=== PATIENT | female | born 1940 | race Caucasian/White ===

== ENCOUNTER 2017-08-30 12:27 | Observation (INO) | payer MEDICARE, BC ==
[~2017-08-30] VITALS: Ht 163.8 cm; Wt 84.4 kg
[2017-08-30] VITALS (8 sets, daily range): BP systolic 122–173; BP diastolic 58–74; PULSE 64–110; RESP 18–20; TEMP 96.9–98.9; O2SAT 93–99
[~2017-08-30 12:27] MED LIST: ACET325T11 PO; ADAL30TA10 PO; ADVAI100I PO; ALBU1AER INH; BIOTCAP PO; CALC600T34 PO; IRBE1TAB39 PO; TAB-TAB PO; VITA400C28 PO
[2017-08-30] MEDS ORDERED: SODIUM CHLORID 0.9% 500 ML INJ 500 ML IV ONE (12:45)
[2017-08-30] MEDS ORDERED: SODIUM CHLORIDE 0.9% FLUSH 10 ML FLUSH IVF PRN (12:45)
[2017-08-30] MEDS ORDERED: MORPHINE SULFATE 4 MG/ML INJ IV PUSH ONE (12:45)
[2017-08-30] MEDS ORDERED: ASPIRIN 81 MG CHEW TAB PO ONE (12:45)
[2017-08-30] MEDS ORDERED: NITROGLYCERIN 2% OINT 1 GM PACKET TOP ONE (12:45)
--- NOTE | 2017-08-30 12:46 | PD ---
HPI Chief Complaint: Chest Pain Time Seen by Provider: 12:30 Travel History International Travel<30 days: No Contact w/Intl Traveler<30days: No Traveled to known affect area: No History of Present Illness HPI The patient is a 77-year-old female who presents to the emergency department with chest pain. The patient developed chest pain earlier today that is left-sided, pressure, radiates to the back, and is sharp with inspiration. She does complain of shortness of breath without any nausea, vomiting, or diaphoresis. The patient does have a history of DVT secondary to previous surgery but is not currently anticoagulated. She denies any known history of pulmonary embolism. She does have a history of hypertension but denies any history of hyperlipidemia, diabetes, or coronary artery disease. She does have a remote history of tobacco use. The patient also states she had 3 episodes of diarrhea earlier today but denies any significant abdominal pain. The patient is followed by her primary physician, Dr. Pyle, and her oncologist, Dr. Nguyen. The patient has a remote history of breast cancer with left lumpectomy and radiation therapy, denies any chemotherapy. She is currently cancer free per her report. Symptoms are moderate. PFSH Past Medical History Narrative Medical Hypertension, COPD, breast cancer Diabetes: No Glaucoma: No Hepatitis: No Hiatal Hernia: No Hypertension: Yes Thyroid Disease: No Past Surgical History Abdominal Surgery: Yes (breast bx right,appendectomy,gallblader with exp) Eye Surgery: Yes (cataract removed from left eye) Oral Surgery: Yes (tonsillectomy) Social History Alcohol Use: Yes (daily beer occ mixed drink) Tobacco Use: No Allergies-Medications (Allergen,Severity, Reaction): Coded Allergies: Fish Containing Products (Unverified Allergy, Severe, ALL FISH AND Shell fish causes throat closes but not iodine, 11/18/16) meperidine (Unverified Allergy, Severe, severe agitation, 11/18/16) penicillin G (Unverified Allergy, Severe, swelling difficulty swallowing, 11/18/16) shellfish derived (Verified Allergy, Severe, 08/30/17) Reported Meds & Prescriptions Reported Meds & Active Scripts Active Reported Colcrys (Colchicine) 0.6 Mg Tab 0.6 Mg PO BID Synthroid (Levothyroxine Sodium) 175 Mcg Tab 175 Mcg PO DAILY Meclizine (Meclizine HCl) 25 Mg Tab 25 Mg PO DIRECTED PRN Proair Hfa 8.5 GM Inh (Albuterol Sulfate) 90 Mcg/Act Aer 2 Puff INH Q4-6H PRN 108 mcg/actuation Flonase Nasal [place] (Fluticasone Nasal [place]) 50 Mcg/Act [place] 50 Mcg EACH NARE BID Breo Ellipta Inh (Fluticasone/Vilanterol) 100-25 Mcg/Act Inh 1 Puff INH DAILY Use daily at the same time. Nifedipine ER 24 HR (Nifedipine) 30 Mg Tab 30 Mg PO DAILY Avapro (Irbesartan) 75 Mg Tab 75 Mg PO DAILY Review of Systems Except as stated in HPI: all other systems reviewed are Neg General / Constitutional: No: Fever HENT: No: Lightheadedness Cardiovascular: Positive: Chest Pain or Discomfort Respiratory: Positive: Shortness of Breath, Pleuritic Pain, No: Cough, Wheezing Gastrointestinal: Positive: Diarrhea, No: Nausea, Vomiting, Abdominal Pain Musculoskeletal: No: Edema Neurologic: No: Dizziness Physical Exam Narrative GENERAL: Awake, alert, very pleasant 77-year-old female who appears her stated age and is in no acute respiratory distress. SKIN: Focused skin assessment warm/dry. HEAD: Atraumatic. Normocephalic. EYES: The patient is wearing glasses. No injection or drainage. ENT: No nasal bleeding or discharge. Mucous membranes pink and moist. NECK: Trachea midline. No JVD. CARDIOVASCULAR: Regular, tachycardic with a heart rate of 105. No audible murmur. RESPIRATORY: No accessory muscle use. Clear to auscultation. Breath sounds equal bilaterally. No wheezing noted. GASTROINTESTINAL: Abdomen soft, non-tender, nondistended. Well-healed midline scar. No rebound tenderness. MUSCULOSKELETAL: No obvious deformities. No clubbing. No cyanosis. No edema. NEUROLOGICAL: Awake and alert. No obvious cranial nerve deficits. Motor grossly within normal limits. Normal speech. PSYCHIATRIC: Appropriate mood and affect; insight and judgment normal. Data Data Last Documented VS Vital Signs Date Time Temp Pulse Resp B/P (MAP) Pulse Ox O2 Delivery O2 Flow Rate FiO2 08/30/17 13:15 110 18 94 Nasal Cannula 2.00 08/30/17 13:06 98.9 173/74 (107) Orders Orders Electrocardiogram (08/30/17 12:39) B-Type Natriuretic Peptide (08/30/17 12:39) Ckmb (Isoenzyme) Profile (08/30/17 12:39) Complete Blood Count With Diff (08/30/17 12:39) Comprehensive Metabolic Panel (08/30/17 12:39) Magnesium (Mg) (08/30/17 12:39) Prothrombin Time / Inr (Pt) (08/30/17 12:39) Act Partial Throm Time (Ptt) (08/30/17 12:39) Troponin I (08/30/17 12:39) Lipase (08/30/17 12:39) Ecg Monitoring (08/30/17 12:39) Bilateral Bp Monitoring (08/30/17 12:39) Iv Access Insert/Monitor (08/30/17 12:39) Oximetry (08/30/17 12:39) Oxygen Administration (08/30/17 12:39) Aspirin Chew (Aspirin Chew) (08/30/17 12:45) Morphine Inj (Morphine Inj) (08/30/17 12:45) Nitroglycerin 2% Oint (Nitroglycerin 2% (08/30/17 12:45) Sodium Chloride 0.9% Flush (Ns Flush) (08/30/17 12:45) Sodium Chlorid 0.9% 500 Ml Inj (Ns 500 M (08/30/17 12:45) Ct Pulmonary Angiogram (08/30/17 12:39) Chest, Pa & Lat (08/30/17 12:39) Ondansetron Odt (Zofran Odt) (08/30/17 13:00) Iohexol 350 Inj (Omnipaque 350 Inj) (08/30/17 14:00) Admit Order (Ed Use Only) (08/30/17 14:16) Labs Laboratory Tests Test 08/30/17 12:46 White Blood Count 8.1 TH/MM3 Red Blood Count 4.08 MIL/MM3 Hemoglobin 13.2 GM/DL Hematocrit 39.7 % Mean Corpuscular Volume 97.3 FL Mean Corpuscular Hemoglobin 32.4 PG Mean Corpuscular Hemoglobin Concent 33.3 % Red Cell Distribution Width 13.2 % Platelet Count 301 TH/MM3 Mean Platelet Volume 7.9 FL Neutrophils (%) (Auto) 66.8 % Lymphocytes (%) (Auto) 24.1 % Monocytes (%) (Auto) 7.0 % Eosinophils (%) (Auto) 1.4 % Basophils (%) (Auto) 0.7 % Neutrophils # (Auto) 5.3 TH/MM3 Lymphocytes # (Auto) 2.0 TH/MM3 Monocytes # (Auto) 0.6 TH/MM3 Eosinophils # (Auto) 0.1 TH/MM3 Basophils # (Auto) 0.1 TH/MM3 CBC Comment DIFF FINAL Differential Comment Prothrombin Time 10.4 SEC Prothromb Time International Ratio 1.0 RATIO Activated Partial Thromboplast Time 25.0 SEC Blood Urea Nitrogen 15 MG/DL Creatinine 0.91 MG/DL Random Glucose 261 MG/DL Total Protein 7.2 GM/DL Albumin 3.7 GM/DL Calcium Level 8.9 MG/DL Magnesium Level 1.8 MG/DL Alkaline Phosphatase 99 U/L Aspartate Amino Transf (AST/SGOT) 19 U/L Alanine Aminotransferase (ALT/SGPT) 30 U/L Total Bilirubin 0.4 MG/DL Sodium Level 138 MEQ/L Potassium Level 3.3 MEQ/L Chloride Level 105 MEQ/L Carbon Dioxide Level 22.2 MEQ/L Anion Gap 11 MEQ/L Estimat Glomerular Filtration Rate 60 ML/MIN Total Creatine Kinase 50 U/L Troponin I LESS THAN 0.02 NG/ML B-Type Natriuretic Peptide 99 PG/ML Lipase 179 U/L MDM Medical Decision Making Medical Screen Exam Complete: Yes Emergency Medical Condition: Yes Medical Record Reviewed: Yes Interpretation(s) EKG reveals sinus tachycardia with a heart rate of 109. RSR prime in V1. Laboratory Tests Test 08/30/17 12:46 White Blood Count 8.1 TH/MM3 Red Blood Count 4.08 MIL/MM3 Hemoglobin 13.2 GM/DL Hematocrit 39.7 % Mean Corpuscular Volume 97.3 FL Mean Corpuscular Hemoglobin 32.4 PG Mean Corpuscular Hemoglobin Concent 33.3 % Red Cell Distribution Width 13.2 % Platelet Count 301 TH/MM3 Mean Platelet Volume 7.9 FL Neutrophils (%) (Auto) 66.8 % Lymphocytes (%) (Auto) 24.1 % Monocytes (%) (Auto) 7.0 % Eosinophils (%) (Auto) 1.4 % Basophils (%) (Auto) 0.7 % Neutrophils # (Auto) 5.3 TH/MM3 Lymphocytes # (Auto) 2.0 TH/MM3 Monocytes # (Auto) 0.6 TH/MM3 Eosinophils # (Auto) 0.1 TH/MM3 Basophils # (Auto) 0.1 TH/MM3 CBC Comment DIFF FINAL Differential Comment Prothrombin Time 10.4 SEC Prothromb Time International Ratio 1.0 RATIO Activated Partial Thromboplast Time 25.0 SEC Blood Urea Nitrogen 15 MG/DL Creatinine 0.91 MG/DL Random Glucose 261 MG/DL Total Protein 7.2 GM/DL Albumin 3.7 GM/DL Calcium Level 8.9 MG/DL Magnesium Level 1.8 MG/DL Alkaline Phosphatase 99 U/L Aspartate Amino Transf (AST/SGOT) 19 U/L Alanine Aminotransferase (ALT/SGPT) 30 U/L Total Bilirubin 0.4 MG/DL Sodium Level 138 MEQ/L Potassium Level 3.3 MEQ/L Chloride Level 105 MEQ/L Carbon Dioxide Level 22.2 MEQ/L Anion Gap 11 MEQ/L Estimat Glomerular Filtration Rate 60 ML/MIN Total Creatine Kinase 50 U/L Troponin I LESS THAN 0.02 NG/ML B-Type Natriuretic Peptide 99 PG/ML Lipase 179 U/L Last Impressions Chest X-Ray 08/30/17 1239 Signed Impressions: CONCLUSION: Negative examination. CT Angiography 08/30/17 1239 Signed Impressions: CONCLUSION: 1. No acute abnormality. In particular, no pulmonary emboli. 2. Cylindrical bronchiectasis. Differential Diagnosis Differential diagnosis includes pulmonary embolism, pneumonia, pneumothorax, pleural effusion, STEMI, acute coronary syndrome, GERD, esophageal spasm, dissection. Narrative Course IV was established, labs are drawn and sent, and the patient was placed on cardiac telemetry monitoring and continuous pulse oximetry monitoring. EKG was ordered and interpreted. The patient was administered aspirin, morphine, Zofran , and Nitropaste to the chest wall. Patient was administered 500 cc normal saline. Chest x-ray was obtained. CT pulmonary angiogram was ordered as patient is tachycardic, short of breath, pleuritic pain, with history of prior DVT. The patient's initial troponin is negative. BNP is unremarkable. Chest x -ray is negative. The patient CT pulmonary angiogram reveals cylindrical bronchiectasis, however, no pulmonary embolism. The patient's oxygen level was in the 90s on O2 via nasal cannula 2 L. Heart rate did come down into the 80s. Shortness of breath resolved, however, she continued to have some anterior left-sided chest pain and discomfort. Therefore, patient will be a 23 hour observation to the chest pain center for serial cardiac enzymes and possible stress test. The patient is comfortable with this plan of care and disposition. The on-call [facility] was paged for 23 hour observation to the chest pain center. Physician Communication Physician Communication [facility] were paged for 23 hour observation to the chest pain center. I discussed the patient with Dr. Ramirez who agrees with 23 hour observation. Diagnosis Primary Impression: Chest pain Qualified Codes: R07.9 - Chest pain, unspecified Admitting Information Admitting Physician Requests: Observation Condition: Stable Omar Dominguez MD August 30, 2017 12:46
[2017-08-30] MEDS ORDERED: ONDANSETRON ODT 4 MG TAB PO ONE (13:00)
[2017-08-30 13:13] LABS: CHLORIDE 105 MEQ/L (98-107); SODIUM (NA) 138 MEQ/L (136-145)
[2017-08-30] MEDS ORDERED: NIFE30TA61 PO (13:14)
[2017-08-30] MEDS ORDERED: FLUT1INH INH (13:14)
[2017-08-30] MEDS ORDERED: ALBUAER3 INH (13:14)
[2017-08-30] MEDS ORDERED: IRBE75TA24 PO (13:14)
[2017-08-30] MEDS ORDERED: COLC0.6T PO (13:14)
[2017-08-30] MEDS ORDERED: MECL-62 PO (13:14)
[2017-08-30] MEDS ORDERED: SYNT175T PO (13:14)
[2017-08-30] MEDS ORDERED: FLUT1SPR5 EACH NARE (13:14)
[2017-08-30 13:18] LABS: ALBUMIN 3.7 GM/DL (3.4-5.0); AUTOMATED NEUTROPHIL # 5.3 TH/MM3 (1.8-7.7); BASOPHIL # 0.1 TH/MM3 (0-0.2); BASOPHIL % 0.7 % (0.0-2.0); BICARBONATE 22.2 MEQ/L (21.0-32.0); CALCIUM 8.9 MG/DL (8.5-10.1); EOSINOPHIL # 0.1 TH/MM3 (0-0.4); EOSINOPHIL % 1.4 % (0.0-4.0); HEMATOCRIT 39.7 % (35.0-46.0); HEMOGLOBIN 13.2 GM/DL (11.6-15.3); LYMPH % 24.1 % (9.0-44.0); MEAN CELL VOLUME 97.3 FL (80.0-100.0); MEAN CORPUSCULAR HEMOGLOBIN 32.4 PG (27.0-34.0); MEAN CORPUSCULAR HGB CONC 33.3 % (32.0-36.0); MEAN PLATELET VOLUME 7.9 FL (7.0-11.0); MONOCYTE # 0.6 TH/MM3 (0-0.9); NEUT % 66.8 % (16.0-70.0); PLATELET COUNT 301 TH/MM3 (150-450); RED BLOOD COUNT 4.08 MIL/MM3 (4.00-5.30); RED CELL DISTRIBUTION WIDTH 13.2 % (11.6-17.2); WHITE BLOOD COUNT 8.1 TH/MM3 (4.0-11.0)
[2017-08-30 13:19] LABS: BLOOD UREA NITROGEN 15 MG/DL (7-18); GLUCOSE,RANDOM 261 MG/DL (74-106); MAGNESIUM 1.8 MG/DL (1.5-2.5)
[2017-08-30 13:21] LABS: ALT (GPT) 30 U/L (10-53); AST (GOT) 19 U/L (15-37); CREATININE 0.91 MG/DL (0.50-1.00); GLOMERULAR FILTRATION RATE 60 ML/MIN (>89)
[2017-08-30 13:23] LABS: TOTAL BILIRUBIN ADULT 0.4 MG/DL (0.2-1.0); TOTAL PROTEIN 7.2 GM/DL (6.4-8.2)
[2017-08-30 13:24] LABS: ALKALINE PHOSPHATASE 99 U/L (45-117)
[2017-08-30 13:27] LABS: TROPONIN I LESS THAN 0.02 NG/ML (0.02-0.05)
[2017-08-30 13:39] LABS: PROTHROMBIN TIME - PATIENT 10.4 SEC (9.8-11.6)
--- NOTE | 2017-08-30 13:42 | RADRPT ---
EXAM DATE: 08/30/2017 1:31 PM EDT AGE/SEX: 77 years / Female INDICATIONS: Chest pain, short of breath CLINICAL DATA: This is the patient's initial encounter. Patient reports that signs and symptoms have been present for 1 day and indicates a pain score of 10/10. MEDICAL/SURGICAL HISTORY: Chronic obstructive pulmonary disease. Hypertension. None. COMPARISON: . FINDINGS: PA and lateral views of the chest demonstrate the lungs to be symmetrically aerated without evidence of mass, infiltrate or effusion. The cardiomediastinal contours are unremarkable. Osseous structures are intact. CONCLUSION: Negative examination. Electronically signed by: Isaiah Arias MD 08/30/2017 1:41 PM EDT
[2017-08-30] MEDS ORDERED: IOHEXOL 350 MG/ML 10 ML VIAL (for RAD DIAG) IVCONTRAST ONE (14:00)
--- NOTE | 2017-08-30 14:08 | RADRPT ---
EXAM DATE: 08/30/2017 1:59 PM EDT AGE/SEX: 77 years / Female INDICATIONS: Left sided chest pain and short of breath. CLINICAL DATA: This is the patient's initial encounter. Patient reports that signs and symptoms have been present for 3 days and indicates a pain score of 4/10. MEDICAL/SURGICAL HISTORY: Carcinoma, breast. Appendectomy. Cholecystectomy. RADIATION DOSE: 18.15 CTDI (mGy) COMPARISON: None. TECHNIQUE: Volumetric scanning was performed using a multi-row detector CT scanner during bolus infu crista of 65 ml Omnipaque 350 (iohexol) nonionic water-soluble contrast as a single exam dose. The andriy a was post processed with a variety of visualization algorithms including full volume maximum intensi ty projection and sliding thin slab reformation. Using automated exposure control and adjustment of the mA and/or kV according to patient size, radiation dose was kept as low as reasonably achievable t o obtain optimal diagnostic quality images. FINDINGS: Pulmonary Arteries: No filling defects are seen in the pulmonary arteries out to the subsegmental ve ssels. The left and right pulmonary arteries are normal in diameter. Lung: No infiltrates seen. Mild cylindrical bronchiectasis bilaterally but most pronounced within th e lower lobes. Effusion: None. Mediastinum: No evidence of mediastinal or hilar adenopathy. Other: The axilla is unremarkable. Partial visualization of a cyst involving the upper pole the left kidney. Tiny hepatic cyst within the dome. CONCLUSION: 1. No acute abnormality. In particular, no pulmonary emboli. 2. Cylindrical bronchiectasis. Electronically signed by: Isaiah Arias MD 08/30/2017 2:06 PM EDT
--- NOTE | 2017-08-30 14:13 | EKG ---
Date Performed: 08/30/2017 Time Performed: 12:31:18 PTAGE: 77 years EKG: SINUS TACHYCARDIA POSSIBLE RIGHT VENTRICULAR CONDUCTION DELAY ABNORMAL RHYTHM ECG PREVIOUS TRACING : 02/14/2008 14.46 No significant change from previous tracing noted. DOCTOR: Juan Carlos Arroyo Interpretating Date/Time 08/30/2017 14:11:35
[2017-08-30] MEDS ORDERED: IOHEXOL 350 MG/ML 50 ML BTL (for Cath Lab) OTHER ONE (14:21)
[2017-08-30] MEDS ORDERED: NITROGLYCERIN 0.4 MG SL 25 TABS/BTL SL PRN (14:30)
[2017-08-30] MEDS ORDERED: ONDANSETRON HCL 4 MG/2 ML VIAL IV PUSH PRN (14:30)
[2017-08-30] MEDS ORDERED: MORPHINE SULFATE 4 MG/ML INJ IV PUSH PRN (14:30)
[2017-08-30] MEDS ORDERED: SODIUM CHLORIDE 0.9% FLUSH 10 ML FLUSH IV FLUSH PRN (14:30)
--- NOTE | 2017-08-30 16:13 | HHI.HP ---
[facility] Physician Coco Pyle MD Admission Diagnosis Chest pain rule out ACS Diagnoses: (1) Hypertension (2) History of left breast cancer (3) Chest pain Chief Complaint: Chest pain Travel History International Travel<30 Days: No Contact w/Intl Traveler <30 Da: No Traveled to Known Affected Are: No History of Present Illness 77-year-old female with a past medical history of hypertension and remote history of breast cancer treated with chemo and radiation, for which patient has been free of disease over the past 10 years presented to the ED for evaluation of an acute onset of left-sided chest pain since this morning described as sharp with radiation to left upper extremity without any associated diaphoresis or dizziness however radiate over 10 in intensity at the time, and not relieved with Tylenol. Patient states she has had in the past chest pain episodes however this current one is quite different in intensity and character from the previous ones. Afterward patient states she has had 3 episode of diarrhea. During my exam, patient was still complaining of chest pain however stated it was now dull and radiates 6 in intensity. She denies any GI bleed Review of Systems Except as stated in HPI: all other systems reviewed are Neg Past Family Social History Past Medical History Hypertension, COPD, breast cancer Hypertension: Yes Gout disease Past Surgical History Abdominal Surgery: Yes (breast bx right,appendectomy,gallblader with exp) Eye Surgery: Yes (cataract removed from left eye) Oral Surgery: Yes (tonsillectomy) Thyroidectomy Reported Medications Colcrys (Colchicine) 0.6 Mg Tab 0.6 Mg PO BID Synthroid (Levothyroxine Sodium) 175 Mcg Tab 175 Mcg PO DAILY Meclizine (Meclizine HCl) 25 Mg Tab 25 Mg PO DIRECTED PRN Proair Hfa 8.5 GM Inh (Albuterol Sulfate) 90 Mcg/Act Aer 2 Puff INH Q4-6H PRN 108 mcg/actuation Flonase Nasal [place] (Fluticasone Nasal [place]) 50 Mcg/Act [place] 50 Mcg EACH NARE BID Breo Ellipta Inh (Fluticasone/Vilanterol) 100-25 Mcg/Act Inh 1 Puff INH DAILY Use daily at the same time. Nifedipine ER 24 HR (Nifedipine) 30 Mg Tab 30 Mg PO DAILY Avapro (Irbesartan) 75 Mg Tab 75 Mg PO DAILY Allergies: Coded Allergies: Fish Containing Products (Unverified Allergy, Severe, ALL FISH AND Shell fish causes throat closes but not iodine, 11/18/16) meperidine (Unverified Allergy, Severe, severe agitation, 11/18/16) penicillin G (Unverified Allergy, Severe, swelling difficulty swallowing, 11/18/16) shellfish derived (Verified Allergy, Severe, 08/30/17) Family History Colon cancer, leukemia, bone cancer, hypertension Social History Alcohol Use: Yes (daily beer occ mixed drink) Tobacco Use: No Physical Exam Vital Signs Vital Signs Date Time Temp Pulse Resp B/P (MAP) Pulse Ox O2 Delivery O2 Flow Rate FiO2 08/30/17 15:41 64 08/30/17 15:23 98.5 65 18 122/58 (79) 95 08/30/17 15:05 99 Nasal Cannula 2.00 08/30/17 13:15 110 18 94 Nasal Cannula 2.00 08/30/17 13:15 94 Nasal Cannula 2.00 08/30/17 13:15 94 Nasal Cannula 2.00 08/30/17 13:06 98.9 110 18 173/74 (107) 94 Physical Exam GENERAL: This is a well-nourished, well-developed patient, in no apparent distress. SKIN: No rashes, ecchymoses or lesions. Cool and dry. HEAD: Atraumatic. Normocephalic. No temporal or scalp tenderness. EYES: Pupils equal round and reactive. Extraocular motions intact. No scleral icterus. No injection or drainage. ENT: Nose without bleeding, purulent drainage or septal hematoma. Throat without erythema, tonsillar hypertrophy or exudate. Uvula midline. Airway patent. NECK: Trachea midline. No JVD or lymphadenopathy. Supple, nontender, no meningeal signs. CARDIOVASCULAR: Regular rate and rhythm without murmurs, gallops, or rubs. RESPIRATORY: Clear to auscultation. Breath sounds equal bilaterally. No wheezes , rales, or rhonchi. GASTROINTESTINAL: Abdomen soft, non-tender, nondistended. No hepato-splenomegaly , or palpable masses. No guarding. MUSCULOSKELETAL: Extremities without clubbing, cyanosis, or edema. No joint tenderness, effusion, or edema noted. No calf tenderness. Negative Homans sign bilaterally. NEUROLOGICAL: Awake and alert. Cranial nerves II through XII intact. Motor and sensory grossly within normal limits. Five out of 5 muscle strength in all muscle groups. Normal speech. Laboratory Laboratory Tests Test 08/30/17 12:46 White Blood Count 8.1 Red Blood Count 4.08 Hemoglobin 13.2 Hematocrit 39.7 Mean Corpuscular Volume 97.3 Mean Corpuscular Hemoglobin 32.4 Mean Corpuscular Hemoglobin Concent 33.3 Red Cell Distribution Width 13.2 Platelet Count 301 Mean Platelet Volume 7.9 Neutrophils (%) (Auto) 66.8 Lymphocytes (%) (Auto) 24.1 Monocytes (%) (Auto) 7.0 Eosinophils (%) (Auto) 1.4 Basophils (%) (Auto) 0.7 Neutrophils # (Auto) 5.3 Lymphocytes # (Auto) 2.0 Monocytes # (Auto) 0.6 Eosinophils # (Auto) 0.1 Basophils # (Auto) 0.1 CBC Comment DIFF FINAL Differential Comment Prothrombin Time 10.4 Prothromb Time International Ratio 1.0 Activated Partial Thromboplast Time 25.0 Blood Urea Nitrogen 15 Creatinine 0.91 Random Glucose 261 Total Protein 7.2 Albumin 3.7 Calcium Level 8.9 Magnesium Level 1.8 Alkaline Phosphatase 99 Aspartate Amino Transf (AST/SGOT) 19 Alanine Aminotransferase (ALT/SGPT) 30 Total Bilirubin 0.4 Sodium Level 138 Potassium Level 3.3 Chloride Level 105 Carbon Dioxide Level 22.2 Anion Gap 11 Estimat Glomerular Filtration Rate 60 Total Creatine Kinase 50 Troponin I LESS THAN 0.02 B-Type Natriuretic Peptide 99 Lipase 179 Result Diagram: 08/30/17 1246 08/30/17 1246 Imaging Last Impressions Chest X-Ray 08/30/17 123 Signed Impressions: CONCLUSION: Negative examination. CT Angiography 08/30/17 123 Signed Impressions: CONCLUSION: 1. No acute abnormality. In particular, no pulmonary emboli. 2. Cylindrical bronchiectasis. Septic Shock Reassessment Septic shock perfusion: reassessment completed Caprini VTE Risk Assessment Caprini VTE Risk Assessment: Mod/High Risk (score >= 2) Caprini Risk Assessment Model Point Value = 1 Point Value = 2 Point Value = 3 Point Value = 5 Age 41-60 Minor surgery BMI > 25 kg/m2 Swollen legs Varicose veins or History of unexplained or recurrent spontaneous Oral contraceptives or hormone replacement Sepsis (< 1 month) Serious lung disease, including pneumonia (< 1 month) Abnormal pulmonary function Acute myocardial infarction Congestive heart failure (< 1 month) History of inflammatory bowel disease Medical patient at bed rest Age 61-74 Arthroscopic surgery Major open surgery (> 45 min) Laparoscopic surgery (> 45 min) Malignancy Confined to bed (> 72 hours) Immobilizing plaster cast Central venous access Age >= 75 History of VTE Family history of VTE Factor V Leiden Prothrombin [id number] Lupus anticoagulant Anticardiolipin antibodies Elevated serum homocysteine Heparin-induced thrombocytopenia Other congenital or acquired thrombophilia Stroke (< 1 month) Elective arthroplasty Hip, pelvis, or leg fracture Acute spinal cord injury (< 1 month) Prophylaxis Regimen Total Risk Factor Score Risk Level Prophylaxis Regimen 0-1 Low Early ambulation 2 Moderate Order ONE of the following: *Sequential Compression Device (SCD) *Heparin 5000 units SQ BID 3-4 Higher Order ONE of the following medications: *Heparin 5000 units SQ TID *Enoxaparin/Lovenox 40 mg SQ daily (WT < 150 kg, CrCl > 30 mL/min) *Enoxaparin/Lovenox 30 mg SQ daily (WT < 150 kg, CrCl > 10-29 mL/min) *Enoxaparin/Lovenox 30 mg SQ BID (WT < 150 kg, CrCl > 30 mL/min) AND/OR *Sequential Compression Device (SCD) 5 or more Highest Order ONE of the following medications: *Heparin 5000 units SQ TID (Preferred with Epidurals) *Enoxaparin/Lovenox 40 mg SQ daily (WT < 150 kg, CrCl > 30 mL/min) *Enoxaparin/Lovenox 30 mg SQ daily (WT < 150 kg, CrCl > 10-29 mL/min) *Enoxaparin/Lovenox 30 mg SQ BID (WT < 150 kg, CrCl > 30 mL/min) AND *Sequential Compression Device (SCD) Assessment and Plan Problem List: (1) Chest pain ICD Code: R07.9 - Chest pain, unspecified Status: Acute (2) Hypertension ICD Code: I10 - Essential (primary) hypertension (3) History of left breast cancer ICD Code: Z85.3 - Personal history of malignant neoplasm of breast Assessment and Plan 77-year-old female with Atypical chest pain Chest x-ray noted and reviewed by me without any cardio pulmonary disease CTA noted and reviewed by me and negative for PE Although patient has remote history of radiation therapy which may be contributing to her current symptoms, we will rule out ACS per protocol with serial cardiac enzyme and EKG Schedule nuclear stress test in a.m. Treat with aspirin/nitroglycerin/statin Check lipid profile, magnesium Hypertension, hypothyroidism Resume outpatient medications Elevated blood glucose No known history of diabetes type 2, check hemoglobin A1c and treat accordingly History of left breast cancer Outpatient follow-up with oncology Hypokalemia Give potassium supplement 60 mEq 1 now and monitor electrolyte Code Status Full code Discussed Condition With Patient, ED physician Problem Qualifiers (1) Chest pain: Qualified Codes: R07.9 - Chest pain, unspecified Sergio Ramirez MD August 30, 2017 16:13
[2017-08-30 16:48] LABS: TROPONIN I LESS THAN 0.02 NG/ML (0.02-0.05)
[2017-08-30] MEDS ORDERED: POTASSIUM CHLORIDE 10 MEQ CONTROLLED RELEASE TAB PO ONE (18:00)
[2017-08-30 19:41] LABS: MAGNESIUM 1.9 MG/DL (1.5-2.5)
[2017-08-30 19:50] LABS: TROPONIN I LESS THAN 0.02 NG/ML (0.02-0.05)
[2017-08-30] MEDS: FAMOTIDINE 20 MG TAB PO SCH (21:34)
[2017-08-30] MEDS: SODIUM CHLORIDE 0.9% FLUSH 10 ML FLUSH IV FLUSH SCH (21:34)
[2017-08-31] VITALS (9 sets, daily range): BP systolic 111–139; BP diastolic 54–67; PULSE 58–72; RESP 18–20; TEMP 96–98.2; O2SAT 89–95
[2017-08-31] MEDS: LEVOTHYROXINE SODIUM 75 MCG TAB PO SCH (06:06)
[2017-08-31] MEDS: LEVOTHYROXINE SODIUM 100 MCG TAB PO SCH (06:06)
[2017-08-31 07:26] LABS: CHLORIDE 110 MEQ/L (98-107); SODIUM (NA) 144 MEQ/L (136-145)
[2017-08-31 07:32] LABS: ALBUMIN 3.3 GM/DL (3.4-5.0)
[2017-08-31 07:42] LABS: ALKALINE PHOSPHATASE 83 U/L (45-117); ALT (GPT) 27 U/L (10-53); AST (GOT) 19 U/L (15-37); BICARBONATE 25.8 MEQ/L (21.0-32.0); BLOOD UREA NITROGEN 8 MG/DL (7-18); CREATININE 0.69 MG/DL (0.50-1.00); GLOMERULAR FILTRATION RATE 83 ML/MIN (>89); GLUCOSE,RANDOM 84 MG/DL (74-106); TOTAL BILIRUBIN ADULT 0.3 MG/DL (0.2-1.0); TOTAL PROTEIN 6.6 GM/DL (6.4-8.2)
[2017-08-31] MEDS: FAMOTIDINE 20 MG TAB PO SCH ×2 (07:52→22:48)
[2017-08-31] MEDS: NIFEdipine 30 MG SUSTAINED RELEASE TAB PO SCH (07:52)
[2017-08-31] MEDS: ASPIRIN 325 MG TAB PO SCH (07:53)
[2017-08-31] MEDS: LOSARTAN 25 MG TAB PO SCH (07:53)
[2017-08-31] MEDS: SODIUM CHLORIDE 0.9% FLUSH 10 ML FLUSH IV FLUSH SCH ×2 (07:55→22:48)
--- NOTE | 2017-08-31 08:11 | EKG ---
Date Performed: 08/30/2017 Time Performed: 19:10:37 PTAGE: 77 years EKG: Sinus rhythm WITH FIRST DEGREE AV BLOCK ABNORMAL ECG PREVIOUS TRACING : 08/30/2017 16.09 No significant change from previous tracing noted. DOCTOR: Juan Carlos Arroyo Interpretating Date/Time 08/31/2017 08:09:19
--- NOTE | 2017-08-31 08:14 | EKG ---
Date Performed: 08/30/2017 Time Performed: 16:09:14 PTAGE: 77 years EKG: Sinus rhythm WITH FIRST DEGREE AV BLOCK ABNORMAL ECG PREVIOUS TRACING : 08/30/2017 12.31 Compared to previous tracing, heart rate has decreased. DOCTOR: Juan Carlos Arroyo Interpretating Date/Time 08/31/2017 08:13:51
[2017-08-31] MEDS: FLUTICASONE 100 MCG/VILANTEROL 25 MCG INHALER INH SCH (08:30)
--- NOTE | 2017-08-31 10:17 | HHI.PR ---
Subjective Remarks Follow-up atypical chest pain August 31, 2017-patient seen and examined, still complaining of chest pain however not too intense as of yesterday. Denies any dizziness or shortness of breath. Currently n.p.o. pending nuclear stress test Objective Vitals Vital Signs Date Time Temp Pulse Resp B/P (MAP) Pulse Ox O2 Delivery O2 Flow Rate FiO2 08/31/17 08:30 96.5 59 18 122/58 (79) 92 08/31/17 08:21 91 21 08/31/17 08:20 67 08/31/17 04:10 96.1 71 20 119/67 (84) 94 08/31/17 00:11 96.0 58 20 121/58 (79) 95 08/30/17 20:35 97 Nasal Cannula 1.00 08/30/17 20:30 65 08/30/17 20:25 96.9 64 20 122/58 (79) 93 08/30/17 16:37 18 08/30/17 15:41 64 08/30/17 15:23 98.5 65 18 122/58 (79) 95 08/30/17 15:05 99 Nasal Cannula 2.00 08/30/17 13:15 110 18 94 Nasal Cannula 2.00 08/30/17 13:15 94 Nasal Cannula 2.00 08/30/17 13:15 94 Nasal Cannula 2.00 08/30/17 13:06 98.9 110 18 173/74 (107) 94 I/O 08/30/17 08/30/17 08/30/17 08/31/17 08/31/17 08/31/17 07:00 15:00 23:00 07:00 15:00 23:00 Intake Total 500 ml 1080 ml Balance 500 ml 1080 ml Intake Oral 1080 ml IV Total 500 ml # Voids 2 2 # Bowel Movements 0 Result Diagram: 08/30/17 1246 08/31/17 0556 Imaging Last Impressions Chest X-Ray 08/30/17 1239 Signed Impressions: CONCLUSION: Negative examination. CT Angiography 08/30/17 1239 Signed Impressions: CONCLUSION: 1. No acute abnormality. In particular, no pulmonary emboli. 2. Cylindrical bronchiectasis. Objective Remarks GENERAL: NAD SKIN: Warm and dry. HEAD: Normocephalic. EYES: No scleral icterus. No injection or drainage. NECK: Supple, trachea midline. No JVD or lymphadenopathy. CARDIOVASCULAR: Regular rate and rhythm without murmurs, gallops, or rubs. RESPIRATORY: Breath sounds equal bilaterally. No accessory muscle use. GASTROINTESTINAL: Abdomen soft, non-tender, nondistended. MUSCULOSKELETAL: No cyanosis, or edema. BACK: Nontender without obvious deformity. No CVA tenderness. A/P Problem List: (1) Chest pain ICD Code: R07.9 - Chest pain, unspecified Status: Acute (2) Hypertension ICD Code: I10 - Essential (primary) hypertension (3) History of left breast cancer ICD Code: Z85.3 - Personal history of malignant neoplasm of breast Assessment and Plan 77-year-old female with Atypical chest pain Chest x-ray noted and reviewed by me without any cardio pulmonary disease CTA noted and reviewed by me and negative for PE Although patient has remote history of radiation therapy which may be contributing to her current symptoms, we will rule out ACS per protocol with serial cardiac enzyme and EKG Schedule nuclear stress test this a.m. Treat with aspirin/nitroglycerin/statin Check lipid profile, magnesium Hypertension, hypothyroidism Continue outpatient medications Elevated blood glucose No known history of diabetes type 2, hemoglobin A1c pending and treat accordingly History of left breast cancer Outpatient follow-up with oncology Hypokalemia Resolved post treatment with potassium supplement 60 mEq 1 Problem Qualifiers (1) Chest pain: Qualified Codes: R07.9 - Chest pain, unspecified Sergio Ramirez MD August 31, 2017 10:17
[2017-08-31] MEDS ORDERED: REGADENOSON INJ 0.4 MG/5 ML SYR IV ONE (10:49)
--- NOTE | 2017-08-31 11:53 | RADRPT ---
EXAM DATE: 08/31/2017 11:41 AM EDT AGE/SEX: 77 years / Female INDICATIONS:Angina. . Left chest pain radiating to the back with dyspnea. CLINICAL DATA: This is the patient's initial encounter. Patient reports that signs and symptoms have been present for 1 day and indicates a pain score of 4/10. MEDICAL/SURGICAL HISTORY: Chronic obstructive pulmonary disease. Hypertension. Carcinoma, lakia ast. Tonsillectomy. Appendectomy. COMPARISON: No prior [place] exams available for comparison. No external comparison. DOSE: 26.2 mCi Tc 99m Myoview at stress 8.7 mCi [id number] at rest 0.4 mg Lexiscan STRESS SYMPTOMS: Chest pressure. EJECTION FRACTION: 62 % TECHNIQUE: The patient underwent pharmacologic stress with infusion of prescribed dose. Continuous ECG tracing was monitored during stress. Gated SPECT imaging was performed after stress and conventi onal SPECT imaging was performed at rest. The examination was performed on a SPECT/CT scanner, both attenuation and non-corrected datasets were reviewed. FINDINGS: Distribution: The maximum perfused segment at stress is in the wall. Perfusion Study: Small area of mild reversibility anterior wall mid myocardium.. Gated Study: There are intact wall motion and wall thickening without hypokinetic or dyskinetic segm ents. The ejection fraction is calculated at 62%. RISK CATEGORY: Intermediate (1-3 % Annual Mortality Rate) CONCLUSION: 1. Small area of mild reversibility anterior wall suggesting ischemia. 2. Normal ejection fraction. Electronically signed by: Sergio Delong MD 08/31/2017 11:52 AM EDT
[2017-08-31 12:11] LABS: CHOLESTEROL 156 MG/DL (120-200); TRIGLYCERIDES 105 MG/DL (42-150)
[2017-08-31 12:13] LABS: CHOLESTEROL/ HDL RATIO 2.43 RATIO; HDL CHOLESTEROL 64.1 MG/DL (40.0-60.0); LDL CHOLESTEROL 71 MG/DL (0-99)
[2017-08-31] MEDS ORDERED: HEPARIN SODIUM - IV 10,000 UNITS/10 ML VIAL IV PUSH ONE (12:30)
[2017-08-31] MEDS: NITROGLYCERIN 2% OINT 1 GM PACKET TOPICAL SCH ×2 (12:47→18:25)
[2017-08-31 13:07] LABS: HEMATOCRIT 39.7 % (35.0-46.0); HEMOGLOBIN 13.5 GM/DL (11.6-15.3); MEAN CELL VOLUME 95.9 FL (80.0-100.0); MEAN CORPUSCULAR HEMOGLOBIN 32.6 PG (27.0-34.0); MEAN PLATELET VOLUME 7.7 FL (7.0-11.0); PLATELET COUNT 267 TH/MM3 (150-450); RED BLOOD COUNT 4.14 MIL/MM3 (4.00-5.30); RED CELL DISTRIBUTION WIDTH 13.3 % (11.6-17.2); WHITE BLOOD COUNT 8.2 TH/MM3 (4.0-11.0)
[2017-08-31 13:43] LABS: INTERNATIONAL NORMALIZED RATIO 1.1 RATIO; PROTHROMBIN TIME - PATIENT 11.1 SEC (9.8-11.6)
[2017-08-31] MEDS: HEPARIN-D5W 25,000 U/250 ML 250 ML IV PRN ×2 (14:11→20:31)
--- NOTE | 2017-08-31 14:53 | TR ---
Date Performed: 08/31/2017 Time Performed: 11:00:54 DOCTOR: Mihai Garza DRUG LIST: CLINICAL HISTORY: ANGINA REASON FOR TEST: Angina REASON FOR ENDING: OBSERVATION: CONCLUSION: Lexiscan stress test was performed under standard four minute protocol. Radionuclide was injected one minute prior to ending the test. No electrocardiographic abormalities were present to suggest ischemia. Nuclear imaging and interpretation are pending. COMMENTS:
[2017-08-31 16:15] LABS: HEMOGLOBIN A1C 5.6 % (4.3-6.0)
[2017-08-31 17:19] LABS: TROPONIN I LESS THAN 0.02 NG/ML (0.02-0.05)
[2017-08-31] MEDS: ACETAMINOPHEN 500 MG CPLT PO PRN (18:24)
[2017-08-31] MEDS ORDERED: HEPARIN SODIUM - IV 10,000 UNITS/10 ML VIAL IV PUSH PRN ×2 (18:30)
[2017-08-31] MEDS: methylPREDNISolone SOD SUCC 125 MG/2 ML VIAL IV PUSH SCH (22:48)
[2017-08-31 23:13] LABS: TROPONIN I LESS THAN 0.02 NG/ML (0.02-0.05)
--- NOTE | 2017-08-31 23:59 | MB ---
cc: Frank Chatman MD DATE: 08/31/2017 HISTORY OF PRESENT ILLNESS: is a very pleasant 77-year-old lady with history of breast cancer, which is reportedly in remission per ____. She presented to the emergency room with severe chest pain described as sharp, associated with dyspnea and it radiates to the left upper extremity. Otherwise, denies any fevers, chills, cough, GI, , bleeding, pain, orthopnea, syncope or dizziness. PAST MEDICAL AND SURGICAL HISTORY: Includes a history of DVT, hypertension. As per history of present illness. She is status post left lumpectomy and radiation therapy. Denies having chemotherapy. Also includes COPD, appendectomy, cholecystectomy, cataract removal, tonsillectomy. SOCIAL HISTORY: She drinks alcohol daily. Denies tobacco use. ALLERGIES: FISH-CONTAINING PRODUCTS, MEPERIDINE, PENICILLIN, SHELLFISH. MEDICATIONS PRIOR TO ADMISSION: Colchicine, Synthroid, meclizine, ProAir, Flonase, Breo Ellipta, nifedipine, Avapro. MEDICATIONS IN THE HOSPITAL: IV heparin, half-inch nitro paste q. 6 hours, aspirin 325 daily, nifedipine 30 mg daily, losartan 25 mg daily, levothyroxine 75 mcg daily alternating 100 mcg daily, famotidine 20 mg b.i.d. PHYSICAL EXAMINATION: VITAL SIGNS: Blood pressure 111/54, pulse 64, respiratory rate 18, temperature 97.8, sats 94% on room air. GENERAL: She is alert and oriented x 3, in no acute distress. NECK: Supple. No JVD. No bruit. CARDIOVASCULAR: S1, S2. No murmurs, rubs or gallops. LUNGS: Clear to auscultation bilaterally. ABDOMEN: Soft, nontender, nondistended, with positive bowel sounds. EXTREMITIES: No extremity edema. IMAGING: Chest x-ray is read as a "negative examination." CT angiography, no acute abnormality. In particular, no pulmonary emboli, cylindrical bronchiectasis. Myocardial perfusion scan, ejection fraction of 62%, small area of mild reversibility in the anterior wall, mid myocardium, "intermediate risk." ____ images are not available to be read on the computer. LABORATORY DATA: White count 8.2, hemoglobin 13.5, hematocrit 39.7, platelet count 267. PTT at 12:52 was 81.6. Troponin is less than 0.02 x 3. Sodium 144, potassium 4.1, chloride 110, bicarb 25.8, BUN 8, creatinine 0.69, magnesium 1.9. LDL was 71. INR 1.1. SHE HAS THE FOLLOWING DIAGNOSES: 1. Unstable angina. 2. Intermediate risk myocardial perfusion scan. 3. History of breast cancer. 4. Hypertension. DISCUSSION: Left heart catheterization is medically necessary due to new onset cardiac symptom of severe chest pain at rest associated with dyspnea and intermediate risk nuclear stress test with reversibility in the anterior wall. Multiple cardiac risk factors. I discussed this with the patient. She agrees to proceed. Plan is to proceed with left heart catheterization on 09/01/2017. We will pretreat the patient for PRESUMED DYE ALLERGY DUE TO HER SHELLFISH ALLERGY with Solu-Medrol tonight and in the a.m. and also 50 of IV Benadryl and 25 IV Pepcid on-call to the pathology laboratory technologist. MD LUIS ENRIQUE Hernandez/JOSE/tyson , 08:04 PM , 09:49 PM
[2017-09-01 00:17] VITALS: BP 124/65; PULSE 61; RESP 20; TEMP 96.1; O2SAT 91
[2017-09-01 05:06] VITALS: BP 121/73; PULSE 69; RESP 20; TEMP 96.9; O2SAT 90
[2017-09-01] MEDS: LEVOTHYROXINE SODIUM 100 MCG TAB PO SCH (06:03)
[2017-09-01] MEDS: LEVOTHYROXINE SODIUM 75 MCG TAB PO SCH (06:03)
[2017-09-01 06:06] LABS: HEMOGLOBIN 13.8 GM/DL (11.6-15.3); MEAN CELL VOLUME 96.8 FL (80.0-100.0); MEAN CORPUSCULAR HEMOGLOBIN 31.9 PG (27.0-34.0); MEAN CORPUSCULAR HGB CONC 32.9 % (32.0-36.0); MEAN PLATELET VOLUME 7.9 FL (7.0-11.0); PLATELET COUNT 274 TH/MM3 (150-450); RED BLOOD COUNT 4.34 MIL/MM3 (4.00-5.30); RED CELL DISTRIBUTION WIDTH 13.1 % (11.6-17.2); WHITE BLOOD COUNT 6.9 TH/MM3 (4.0-11.0)
[2017-09-01] MEDS: NITROGLYCERIN 2% OINT 1 GM PACKET TOPICAL SCH ×3 (06:06→13:45)
[2017-09-01 06:18] LABS: BICARBONATE 23.4 MEQ/L (21.0-32.0)
[2017-09-01 06:22] LABS: CREATININE 0.69 MG/DL (0.50-1.00)
[2017-09-01 07:59] VITALS: BP 117/61; PULSE 74; RESP 18; TEMP 98.7; O2SAT 95
[2017-09-01] MEDS: SODIUM CHLORIDE 0.9% FLUSH 10 ML FLUSH IV FLUSH SCH (09:00)
[2017-09-01] MEDS: FAMOTIDINE 20 MG TAB PO SCH (09:25)
[2017-09-01] MEDS: FLUTICASONE 100 MCG/VILANTEROL 25 MCG INHALER INH SCH (09:25)
[2017-09-01] MEDS: NIFEdipine 30 MG SUSTAINED RELEASE TAB PO SCH (09:25)
[2017-09-01] MEDS: ASPIRIN 325 MG TAB PO SCH (09:25)
[2017-09-01] MEDS: LOSARTAN 25 MG TAB PO SCH (09:26)
[2017-09-01] MEDS: methylPREDNISolone SOD SUCC 125 MG/2 ML VIAL IV PUSH SCH (09:26)
[2017-09-01] MEDS: ACETAMINOPHEN 500 MG CPLT PO PRN ×2 (09:26→13:45)
--- NOTE | 2017-09-01 09:41 | HHI.PR ---
Subjective Remarks Follow-up atypical chest pain/unstable angina August 31, 2017-patient seen and examined, still complaining of chest pain however not too intense as of yesterday. Denies any dizziness or shortness of breath. Currently n.p.o. pending nuclear stress test September 01, 2017-patient seen and examined, she had yesterday Intermediate risk myocardial perfusion scan for which cardiology was consulted. Patient continues to experience mild chest pain. Currently n.p.o. pending transfer to the [facility] for left heart catheterization Objective Vitals Vital Signs Date Time Temp Pulse Resp B/P (MAP) Pulse Ox O2 Delivery O2 Flow Rate FiO2 09/01/17 07:59 98.7 74 18 117/61 (79) 95 09/01/17 05:06 96.9 69 20 121/73 (89) 90 09/01/17 00:17 96.1 61 20 124/65 (84) 91 08/31/17 21:00 68 08/31/17 20:03 18 08/31/17 20:00 97.8 72 20 123/58 (79) 89 08/31/17 20:00 94 21 08/31/17 16:00 97.8 64 18 111/54 (73) 94 08/31/17 12:00 98.2 63 19 139/67 (91) 93 I/O 08/31/17 08/31/17 08/31/17 09/01/17 09/01/17 09/01/17 07:00 15:00 23:00 07:00 15:00 23:00 Intake Total 600 ml 170 ml 0 ml Balance 600 ml 170 ml 0 ml Intake Oral 600 ml 0 ml IV Total 170 ml # Voids 2 4 3 # Bowel Movements 0 Result Diagram: 09/01/17 0550 09/01/17 0550 Imaging Last Impressions Myocardial Perfusion Scan Nuc Med 08/31/17 0000 Signed Impressions: CONCLUSION: 1. Small area of mild reversibility anterior wall suggesting ischemia. 2. Normal ejection fraction. Chest X-Ray 08/30/17 1239 Signed Impressions: CONCLUSION: Negative examination. CT Angiography 08/30/17 1239 Signed Impressions: CONCLUSION: 1. No acute abnormality. In particular, no pulmonary emboli. 2. Cylindrical bronchiectasis. Objective Remarks GENERAL: NAD SKIN: Warm and dry. HEAD: Normocephalic. EYES: No scleral icterus. No injection or drainage. NECK: Supple, trachea midline. No JVD or lymphadenopathy. CARDIOVASCULAR: Regular rate and rhythm without murmurs, gallops, or rubs. RESPIRATORY: Breath sounds equal bilaterally. No accessory muscle use. GASTROINTESTINAL: Abdomen soft, non-tender, nondistended. MUSCULOSKELETAL: No cyanosis, or edema. BACK: Nontender without obvious deformity. No CVA tenderness. A/P Problem List: (1) Unstable angina ICD Code: I20.0 - Unstable angina (2) Chest pain ICD Code: R07.9 - Chest pain, unspecified Status: Acute (3) Hypertension ICD Code: I10 - Essential (primary) hypertension (4) History of left breast cancer ICD Code: Z85.3 - Personal history of malignant neoplasm of breast Assessment and Plan 77-year-old female with Unstable angina Atypical chest pain Chest x-ray without any cardio pulmonary disease CTA negative for PE Patient had intermediate risk myocardial perfusion scan for which cardiology was consulted Plan for left heart catheterization today September 01, 2017 Continue heparin drip/aspirin/nitroglycerin LDL of 71 Transfer to the [facility] Hypertension, hypothyroidism Continue outpatient medications Elevated blood glucose No known history of diabetes type 2, hemoglobin A1c 5.6 History of left breast cancer Outpatient follow-up with oncology Hypokalemia Resolved post treatment with potassium supplement 60 mEq 1 Transfer to the [facility] for left heart catheterization Problem Qualifiers (1) Chest pain: Qualified Codes: R07.9 - Chest pain, unspecified Sergio Ramirez MD September 01, 2017 09:41
[2017-09-01] MEDS: HEPARIN-D5W 25,000 U/250 ML 250 ML IV PRN (12:04)
[2017-09-01 13:10] VITALS: BP 136/73; PULSE 65; RESP 18; TEMP 99.2; O2SAT 93
--- NOTE | 2017-09-01 14:15 | EKG ---
Date Performed: 08/31/2017 Time Performed: 22:33:03 PTAGE: 77 years EKG: SINUS BRADYCARDIA WITH FIRST DEGREE AV BLOCK ABNORMAL ECG PREVIOUS TRACING : 08/31/2017 16.38 Since the previous tracing, no significant change noted DOCTOR: Mihai Garza Interpretating Date/Time 09/01/2017 14:07:12
--- NOTE | 2017-09-01 14:15 | EKG ---
Date Performed: 08/31/2017 Time Performed: 16:38:20 PTAGE: 77 years EKG: Sinus rhythm WITH FIRST DEGREE AV BLOCK ABNORMAL ECG PREVIOUS TRACING : 08/30/2017 19.10 Since the previous tracing, no significant change noted DOCTOR: Mihai Garza Interpretating Date/Time 09/01/2017 14:07:20
[2017-09-01] MEDS ORDERED: HEPARIN-NS/PF INJ 1,000 ML ONE (15:57)
[2017-09-01] MEDS ORDERED: MIDAZOLAM HCL 2 MG/2 ML VIAL ONE (15:58)
[2017-09-01] MEDS ORDERED: diphenhydrAMINE HCL 50 MG/ML VIAL ONE (16:21)
[2017-09-01] MEDS ORDERED: FAMOTIDINE 20 MG/2 ML VIAL ONE (16:21)
[2017-09-01] MEDS ORDERED: SODIUM CHLORIDE 0.9% FLUSH 10 ML FLUSH IV FLUSH PRN (16:45)
[2017-09-01] MEDS ORDERED: MISC INFORMATION XX ONE (16:45)
--- NOTE | 2017-09-01 17:05 | MR ---
cc: Frank Chatman MD, Arthur W MD DATE: 09/01/2017 PROCEDURES: Left heart catheterization, left coronary ventriculography, coronary angiography INDICATIONS FOR PROCEDURE: Unstable angina, intermediate risk myocardial perfusion study. PROCEDURAL STATEMENT: The patient was brought to the cardiac catheterization laboratory, prepped and draped in the usual sterile fashion. 10 mL of 1% lidocaine was used to locally anesthetize the common femora artery. A 4-Kenyan sheath placed in right common femoral artery, 4-Kenyan JR-4 JL4 catheter were used to perform left and right coronary ventriculography and left angiography. FINDINGS: LV pressure is 140/6/10, EF 60%. Right coronary artery is dominant, no significant disease angiographically. Left main coronary artery has no significant disease angiographically. Left circumflex vessel has no significant disease angiographically. It is a high obtuse marginal vessel/ramus intermedius vessel 1.5 to 2 mm diameter, 30-40% ostial disease with a 20 degree angulation off the AV groove left circumflex vessel, which is a large vessel, 4 mm in diameter. There is an obtuse marginal vessel coming off the mid AV groove left circ, which is large, tortuous, no significant disease angiographically. The LAD is transapical, tortuous, no significant disease angiographically. First diagonal artery comes off the mid to distal LAD with no significant disease angiographically. CONCLUSIONS: 1. Angiographically no significant disease in a right dominant system as detailed above. 2. Normal left ventricular systolic function with ejection fraction 60%. 3. Recommend workup of noncardiac chest pain. Frank Chatman MD Patricio/ , 04:41 PM , 05:05 PM
--- NOTE | 2017-09-01 17:12 | CATHPROC ---
Power Efficiency HIS Report Study Information Study Number Admission Scheduled Start Study Start [id number] Aug 30 2017 2:20PM 09/01/2017 Sep 01 2017 3:45PM [place] Service Cardiac Catheterization Admit Source Facility Department Emergency department [facility] - Radio Program Checker Physician and Clinical Staff Initial Frank Pappas Typewriters Functional Tester Leanne Portillo,GIL Recorder Maribel Mcginnis,RT(R) ScrIvelisse Rojas,RT(R) (BS) Procedures Performed Procedure Location (Site) Vessel Name Coronary Angiograms LCA Left Coronary Coronary Angiograms RCA Right Coronary L Heart Cath LV Gram-hand inj. LV LV Ventricle Equipment Time Yardmaster Description Size Mfg Part Number Used/Scraped TRANSDUCER, TRUWAVE [id number] 15:46 MELÉNDEZ ROWLAND * Used W/STOCKCOCK *[id number] [id number] *[id number] *[id number] 15:46 [employer] INDUSTRIES PACK, CCL CUSTOM * Used *[id number] 15:46 [employer] PACER PEN, SKIN DUAL W/ RULER * Used *[id number] 16:30 [employer] MEDICAL SHEATH, FR4.5 PRELUDE 11CM FR 4.5 Used 035ACT [id number] 15:46 [employer] MEDICAL WIRE, 3MMJ .035 180CM 180CM Used *[id number] 15:46 NAMIC MANIFOLD, 4 PORT * Used *[id number] 15:46 [employer] OMNIPAQUE, 350 MG, 150ML 150ML [id number] Used [id number] 15:46 [employer] BLANKET,WARM AIR CCL * Used *[id number] 15:46 [employer] MEDICAL SHEATH, FR4 TERUMO (10CM) FR 4 Used *[id number] History: Current Medications Medication Dosage/Unit Route Frequency Last Date/Time Taken COZAAR PROCARDIA ASA History: Allergies Allergy Reaction Demerol severe agitation Penicillin swelling difficulty swallowing White Fish ALL FISH AND Shell fish causes throat closes but not iodine Fish Containing Products ALL FISH AND Shell fish causes throat closes but not iodine meperidine severe agitation penicillin G swelling difficulty swallowing shellfish derived History: Risk Factors Family History of Hypertension Dyslipidemia Previous SD Previous Heart Failure Premature CAD Yes No No No No Prior Valve Prior PCI Prior CABG Surgery No No No Cerebrovascular Peripheral Artery Chronic Lung On Dialysis Diabetes Disease Disease Disease No No No Yes No History: Stress Tests Stress or Imaging Studies Performed Yes Standard Exercise Stress Test No Stress Echo No Stress Test SPECT Stress Test SPECT Result Stress Test SPECT Ischemia Risk/Extent Yes Positive Intermediate Stress Test CMR No Cardiac CTA Coronary Calcium Score No No Labs Hgb (g/dl) Hct (%) WBC (l/cumm) Platelets (thousands) 11.60-17.00 35.00-51.00 4.00-11.00 150.00-450.00 13.8 42 6.9 274 Glucose (mg/dl) BUN (mg/dl) Creatinine (mg/dl) BUN:Creatinine (1:x) 74.00-106.00 7.00-18.00 0.50-1.30 10.00-20.00 183 12 0.7 17.1 Na (meq/l) K (meq/l) 136.00-145.00 3.50-5.10 141 3.7 INR (PTT:PT) 0.90-1.10 1.1 Troponin I (ng/ml) CPK (u/l) CPK-MB (ng/ML) 0.02-0.05 26.00-308.00 0.50-3.60 0.02 37 Not Drawn Medication Medication Total Dose (Bolus/Oral) Medication Total Dosage/Unit 1% XYLOCAINE 20 mL BENADRYL 50 mg FENTANYL 25 mcg NITRO OINTMENT 0.5 inches PEPCID 20 mg VERSED 1 mg Medications (Bolus/Oral) Medication Time Given Dosage/Unit Administered By Reason NITRO OINTMENT 09/01/2017 3:50:49 PM 0.5 inches Patient arrived on 0.5 inches NITRO OINTMENT in Left shoulder via Topical. VERSED 09/01/2017 4:20:01 PM 1 mg Leanne Portillo 1 mg VERSED given in lab by Leanne Portillo, RN in Right Antecubital via Peripheral IV. Ordered by Frank Whatley. FENTANYL 09/01/2017 4:21:10 PM 25 mcg Leanne Portillo 25 mcg FENTANYL given in lab by Leanne Portillo, RN in Right Antecubital via Peripheral IV. Ordered Frank Ching. BENADRYL 09/01/2017 4:22:50 PM 50 mg Lindsey, Leanne 50 mg BENADRYL given in lab by Leanne Portillo RN in Right Antecubital via Peripheral IV. Ordered by Frank Chatman. 1% XYLOCAINE 09/01/2017 4:23:04 PM 20 mL Frank Chatman 20 mL 1% XYLOCAINE given in lab by Frank Chatman in Right Groin via Subcutaneous. PEPCID 09/01/2017 4:23:29 PM 20 mg Leanne Portillo 20 mg PEPCID given in lab by Leanne Portillo RN in Right Antecubital via Peripheral IV. Ordered by Frank Landin. Medication (Drip) Medication Time Given Dosage/Unit Concentration/Unit Diluent (ml) Solution HEPARIN DRIP STOPPED 09/01/2017 3:40:11 PM 0 units/hr 0 0 units/hr HEPARIN DRIP STOPPED given by Leanne Portillo RN in Right Antecubital via Peripheral IV. Pump/Drip Flow = 11 ml/hr using [Solution Name]. IV Solutions 09/01/2017 4:01:29 PM 50 mL (IV) NaCl .9 IV Solutions given in lab by Leanne Portillo RN in Right Antecubital via Peripheral IV. Pump/Drip Fl ow using NaCl .9. Initial Case Assessment Cardiovascular HR Rhythm NIBP Chest Pain 82 SR 141/78 0 Edema Present Skin color Skin None Normal Warm Dry Circulatory - Right Pulses Dorsalis Pedis Femoral 2 2 Scale (0,1,2,3,4,d) Circulatory - Left Pulses Dorsalis Pedis Femoral 2 2 Scale (0,1,2,3,4,d) Neurological State Oriented to time-place- Alert Moves all extremities person Respiration - General Respiration Rate SpO2 (%) (B/min) 14 95 Chronological Log Time Study Chronological Log 0 units/hr HEPARIN DRIP STOPPED given by Leanne Portillo RN in Right Antecubital via Periphe ral IV. Pump/Drip Flow 15:40:11 = 11 ml/hr using [Solution Name]. 15:50:17 Patient arrived via Bed. 15:50:20 Patient Name, D.O.B, / Armband Verified By R.N. 15:50:22 Consent signed by the physician and the patient and verified by the Radio Program Checker staff. 15:50:24 Pre-op and post- op instructions given; patient acknowledges understanding of instruction s. 15:50:49 Patient arrived on 0.5 inches NITRO OINTMENT in Left shoulder via Topical. Vitals capture started with the following parameters, Patient=Adult, Interval=5 min, Initial Qebfcmqh=637 mmHg, 15:56:23 Deflation Rate=5 mmHg, Cuff placed on Left Arm 15:56:58 DVIT=649/82 mmhg, SpO2=94.0 %, Resp=12 B/min 16:01:21 Verbal Stimulation=2 Physical Stimulation=2 Airway=2 Respiration=2 TOTAL=8. (0=absent, 1= limited, 2=present) 16:01:22 Presedation assessment performed by Radio Program Checker RN. 16:01:23 Patient has been NPO for More than 6Hrs. 16:01:24 Skin Breakdown- none 16:01:26 Patient Warmer Placed on the Table. 16:01:27 Keith Prominences Protected 16:01:28 A # 20 IV was noted in the Antecubital (right). Grade = 0 16:01:29 IV Solutions given in lab by Leanne Portillo, GIL in Right Antecubital via Peripheral IV. Pu mp/Drip Flow using NaCl .9. 16:01:30 History and physical on the chart or being dictated. Assessment: Initial Case, HR=82 BPM, Rhythm=SR, IZNL=862/78 mmhg, Chest Pain=0, Edema=None, Col or=Normal, Skin = Warm, Dry Right Pulses: Eliot Ped=2, Femoral=2 16:01:31 Left Pulses: Eliot Ped=2, Femoral=2 Neurological: State=Alert, Ox3, RUSS Respiration: Resp=14 B/min, SpO2=95 % 16:01:34 Iodine allergy noted, pt premedicated 16:02:01 HR=75 bpm, ZWDB=368/78 mmhg, SpO2=95.0 %, Resp=14 B/min 16:02:39 Reference ECG taken 16:05:41 Bilateral groins prepped with 2% chlorhexidine, and draped after a 3 minute waiting time. 16:07:02 HR=83 bpm, QASA=218/79 mmhg, SpO2=94.0 %, Resp=19 B/min 16:10:25 Pressure channel 1 zeroed. 16:12:03 HR=85 bpm, RAFM=164/85 mmhg, SpO2=94.0 %, Resp=9 B/min 16:17:05 HR=86 bpm, EDJH=361/88 mmhg, SpO2=96.0 %, Resp=15 B/min 16:19:50 MD arrived. 16:20:01 1 mg VERSED given in lab by Leanne Portillo, GIL in Right Antecubital via Peripheral IV. Ord ered by Frank Chatman. 25 mcg FENTANYL given in lab by Leanne Portillo, GIL in Right Antecubital via Peripheral IV. Ord ered by Lurdes, 16:21:10 Frank. Time Out. Correct patient, correct procedure, correct physician, labs, allergies, and equipment verified with laborer starch factory 16:21:16 team present. Fire risk assesment completed (see hard stop sheet for coding). Time Out Conc urred by and individual staff in procedure. 16:22:06 HR=81 bpm, IJAE=883/81 mmhg, SpO2=92 %, Resp=10 B/min 50 mg BENADRYL given in lab by Leanne Portillo, GIL in Right Antecubital via Peripheral IV. Orde red by Lurdes, 16:22:50 Frakn. 16:22:52 Case Start 16:23:04 20 mL 1% XYLOCAINE given in lab by Frank Chatman in Right Groin via Subcutaneous. 16:23:29 20 mg PEPCID given in lab by Leanne Portillo, GIL in Right Antecubital via Peripheral IV. Or dered by Frank Chatman. 16:24:42 Access site aborted, manual pressure applied 16:25:47 Activated Clotting Time Drawn 16::18 Access site was Right Femoral Vein. 16:26:27 A SHEATH, FR4 TERUMO (10CM) FR 4 was advanced into the Fem Vein (right) using the Percutane ous technique. 16:27:07 HR=84 bpm, KHTS=350/78 mmhg, SpO2=95.0 %, Resp=8 B/min 16:29:18 Access site was Right Femoral Artery. 16:29:40 A SHEATH, FR4.5 PRELUDE 11CM FR 4.5 was advanced into the Fem Art (right) using the Percuta neous technique. A JR 4.0 INFINITI CATHETER FR 4 was advanced over a wire. OMNIPAQUE, 350 MG, 150ML 150ML was us ed for 16:30:26 injections. Recorded Pressure: LV, HR=96, Condition=Condition 1 16:31:10 (Left Ventricle) LV 145/10/17 16:31:21 The LV was manually injected with 8 cc's and visualized. OMNIPAQUE, 350 MG, 150ML 150ML use d. Recorded Pressure: LV, Ao, HR=87, Condition=Condition 1 16:31:28 (Left Ventricle) LV 157/17/43, (Aorta) Ao 156/83/116 Recorded Pressure: Ao, HR=87, Condition=Condition 1 16:31:42 (Aorta) Ao 148/79/111 16:31:52 ACT (Normal Range 90-180) = 166 16:31:57 The RCA was injected and visualized at various angles. OMNIPAQUE, 350 MG, 150ML 150ML used . 16:32:06 HR=81 bpm, WPWR=028/80 mmhg, SpO2=95.0 %, Resp=12 B/min 16:32:22 Catheter was removed A JL 4.0 INFINITI CATHETER FR 4 was advanced over a wire. OMNIPAQUE, 350 MG, 150ML 150ML was us ed for 16:32:59 injections. 16:33:54 The LCA was injected and visualized at various angles. OMNIPAQUE, 350 MG, 150ML 150ML used . 16:34:51 Catheter was removed 16:35:44 Case End 16:37:07 HR=81 bpm, NAOH=761/84 mmhg, SpO2=95.0 %, Resp=7 B/min 16:42:08 HR=74 bpm, LPVW=767/81 mmhg, SpO2=96.0 %, Resp=13 B/min 16:44:07 Sheath removed; pressure applied to access site. 16:46:13 NIBP STAT measurement started. 16:46:48 HR=81 bpm, JTOX=853/88 mmhg, SpO2=96.0 %, Resp=12 B/min 16:49:44 Venous Sheath removed; pressure applied to access site. 16:50:22 No case complications noted. 16:50:24 Holding Area notified. 16:50:31 A Left Heart Cath was performed. 16:52:12 HR=69 bpm, XKIN=848/73 mmhg, SpO2=95.0 %, Resp=15 B/min 16:57:09 HR=67 bpm, IGUC=598/73 mmhg, SpO2=96.0 %, Resp=8 B/min 17:00:34 Patient moved to stretcher 17:02:10 HR=64 bpm, XLRT=583/71 mmhg, SpO2=95.0 %, Resp=15 B/min 17:07:40 HR=65 bpm, XDUH=009/64 mmhg, SpO2=94.0 %, Resp=10 B/min 17:11:00 Sterile dressing applied to site 17:11:37 Vitals capture stopped. 17:11:49 Patient moved to stretcher End Study - Contrast Media Used In Study Contrast Total Opened (mL) Total Used (mL) Total Wasted (mL) Omnipaque 35 35 0 End Study - Maximum Contrast Load Max Contrast Load (mL) 602.9 End Study - Radiation Exposure Fluoro Time (minutes) 2.0 End Study - Sheaths Sheaths Pulled By Sheath Hold Time (min) Leanne Portillo 20 End Study - Patient Disposition Complications Transferred To Interventional Outcome No Outpatient Bed No attempt made
[2017-09-01] MEDS ORDERED: ASPI81TA23 PO (17:22)
--- NOTE | 2017-09-01 17:29 | HHI.DS ---
Discharge Summary Admission Date August 30, 2017 at 14:20 Discharge Date: September 01, 2017 Admitting Diagnosis Chest pain rule out ACS (1) Unstable angina ICD Code: I20.0 - Unstable angina (2) Chest pain ICD Code: R07.9 - Chest pain, unspecified Status: Acute (3) Hypertension ICD Code: I10 - Essential (primary) hypertension (4) History of left breast cancer ICD Code: Z85.3 - Personal history of malignant neoplasm of breast Procedures Left heart Cath 09/01/17 Brief History - From Admission 77-year-old female with a past medical history of hypertension and remote history of breast cancer treated with chemo and radiation, for which patient has been free of disease over the past 10 years presented to the ED for evaluation of an acute onset of left-sided chest pain since this morning described as sharp with radiation to left upper extremity without any associated diaphoresis or dizziness however radiate over 10 in intensity at the time, and not relieved with Tylenol. Patient states she has had in the past chest pain episodes however this current one is quite different in intensity and character from the previous ones. Afterward patient states she has had 3 episode of diarrhea. During my exam, patient was still complaining of chest pain however stated it was now dull and radiates 6 in intensity. She denies any GI bleed CBC/BMP: 09/01/17 0550 09/01/17 0550 Significant Findings Laboratory Tests Test 08/30/17 12:46 08/30/17 16:10 08/30/17 19:15 08/31/17 05:56 Random Glucose 261 MG/DL (74-106) Potassium Level 3.3 MEQ/L (3.5-5.1) Estimat Glomerular Filtration Rate 60 ML/MIN (>89) 83 ML/MIN (>89) Troponin I LESS THAN 0.02 NG/ML LESS THAN 0.02 NG/ML LESS THAN 0.02 NG/ML Albumin 3.3 GM/DL (3.4-5.0) Chloride Level 110 MEQ/L (98-107) HDL Cholesterol 64.1 MG/DL (40.0-60.0) Test 08/31/17 12:52 08/31/17 16:42 08/31/17 19:45 08/31/17 22:38 Activated Partial Thromboplast Time 81.6 SEC (24.3-30.1) 34.2 SEC (24.3-30.1) Troponin I LESS THAN 0.02 NG/ML LESS THAN 0.02 NG/ML Test 09/01/17 03:00 09/01/17 05:50 09/01/17 09:20 Activated Partial Thromboplast Time 49.8 SEC (24.3-30.1) 49.5 SEC (24.3-30.1) Random Glucose 183 MG/DL (74-106) Chloride Level 109 MEQ/L (98-107) Estimat Glomerular Filtration Rate 83 ML/MIN (>89) Imaging Last Impressions Myocardial Perfusion Scan Nuc Med 08/31/17 0000 Signed Impressions: CONCLUSION: 1. Small area of mild reversibility anterior wall suggesting ischemia. 2. Normal ejection fraction. Chest X-Ray 08/30/17 1239 Signed Impressions: CONCLUSION: Negative examination. CT Angiography 08/30/17 1239 Signed Impressions: CONCLUSION: 1. No acute abnormality. In particular, no pulmonary emboli. 2. Cylindrical bronchiectasis. PE at Discharge GENERAL: NAD SKIN: Warm and dry. HEAD: Normocephalic. EYES: No scleral icterus. No injection or drainage. NECK: Supple, trachea midline. No JVD or lymphadenopathy. CARDIOVASCULAR: Regular rate and rhythm without murmurs, gallops, or rubs. RESPIRATORY: Breath sounds equal bilaterally. No accessory muscle use. GASTROINTESTINAL: Abdomen soft, non-tender, nondistended. MUSCULOSKELETAL: No cyanosis, or edema. BACK: Nontender without obvious deformity. No CVA tenderness. Hospital Course While in the hospital, the patient was treated for: Unstable angina Atypical chest pain Chest x-ray without any cardio pulmonary disease CTA negative for PE Patient had intermediate risk myocardial perfusion scan for which cardiology was consulted she underwent left heart catheterization September 01, 2017 Treated with heparin drip/aspirin/nitroglycerin LDL of 71 Hypertension, hypothyroidism Treated with outpatient medications Elevated blood glucose No known history of diabetes type 2, hemoglobin A1c 5.6 History of left breast cancer Outpatient follow-up with oncology Hypokalemia Resolved post treatment with potassium supplement 60 mEq 1 Pt Condition on Discharge: Good Discharge Disposition: Discharge Home Discharge Time: <= 30 minutes Discharge Instructions DIET: Follow Instructions for: Heart Healthy Diet Activities you can perform: Regular-No Restrictions Follow up Referrals: PCP Follow-up - 1 Week New Medications: Aspirin DR (Aspirin EC) 81 Mg Tabdr 81 MG PO DAILY for Prevent Blood Clot, #30 TAB 0 Refills Continued Medications: Albuterol 8.5 GM Inh (Proair Hfa 8.5 GM Inh) 90 Mcg/Act Aer 2 PUFF INH Q4-6H PRN for SHORTNESS OF BREATH, #1 INHALER 0 Refills 108 mcg/actuation Colchicine (Colcrys) 0.6 Mg Tab 0.6 MG PO BID for Gout, TAB 0 Refills Fluticasone Nasal [place] (Flonase Nasal [place]) 50 Mcg/Act [place] 50 MCG EACH NARE BID for Allergies, #1 BOTTLE 0 Refills Fluticasone-Vilanterol Inh (Breo Ellipta Inh) 100-25 Mcg/Act Inh 1 PUFF INH DAILY, #1 INHALER 0 Refills Use daily at the same time. Irbesartan (Avapro) 75 Mg Tab 75 MG PO DAILY for Blood Pressure Management, #30 TAB 0 Refills Levothyroxine (Synthroid) 175 Mcg Tab 175 MCG PO DAILY for Thyroid, #30 TAB 0 Refills Nifedipine ER 24 HR (Nifedipine ER 24 HR) 30 Mg Tab 30 MG PO DAILY, #30 TAB 0 Refills Discontinued Medications: Meclizine (Meclizine) 25 Mg Tab 25 MG PO DIRECTED PRN for VERTIGO, TAB 0 Refills Sergio Ramirez MD September 01, 2017 17:28
[2017-09-01] MEDS ORDERED: BACITRACIN OINT 0.9 GM PKT TOP ONE (18:00)
[2017-09-01] MEDS ORDERED: SODIUM CHLORIDE 0.9% FLUSH 10 ML FLUSH IV FLUSH SCH (21:00)
== END 2017-09-01 19:25 | disposition home or self-care (01) ==
LOC: PHED 12:27 → PHEDA 14:20 → PH3B 14:53 → NEPGCP 09-01 13:11 → HCIS 09-01 17:12
PROVIDERS: ADMIT Hospitalist; ATTEND Hospitalist
DX: I20.0 Unstable angina (principal); E87.6 Hypokalemia; R19.7 Diarrhea, unspecified; I10 Essential (primary) hypertension; R00.0 Tachycardia, unspecified; R94.31 Abnormal electrocardiogram [ECG] [EKG]; I44.0 Atrioventricular block, first degree; J44.9 Chronic obstructive pulmonary disease, unspecified; M10.9 Gout, unspecified; E89.0 Postprocedural hypothyroidism; R73.9 Hyperglycemia, unspecified; Z85.3 Personal history of malignant neoplasm of breast; Z92.3 Personal history of irradiation; Z79.899 Other long term (current) drug therapy; Z86.718 Personal history of other venous thrombosis and embolism
CPT/HCPCS: 71046; 71275; 78452; 80048; 80053; 80061; 82550; 83036; 83690; 83735; 83880; 84484; 85002; 85025; 85027; 85610; 85730; 93005; 93017; 93458; 96361; 96365; 96366; 96372; 96374; 96375; 99152; 99285; A9502; C1769; C1893; G0378; J1200; J1644; J2250; J2270; J2785; J2930; J3010; J7040; Q9967